=== PATIENT | female | born 1940 | race Caucasian/White ===

== ENCOUNTER 2023-09-02 09:06 | Outpatient (POV) | payer MEDICARE, SELFPAY ==
--- NOTE | 2023-09-02 10:01 | A.OFFVIS_ITS ---
HPI Data of Consult Patient: new to practice Consult date: 09/02/23 Requesting Physician: Saundra Aponte APRN Primary Care Provider: WM Charlie Shi MD Consult Narrative Reason for consult: Low back pain, mid back pain History of present illness: Ms. Covarrubias is a 83 year old female who presents today as a patient from the [facility] office. Today she rates her pain a 10 out of 10. Patient states her pain is all in her low back where it starts and does radiate up into her mid back and occasionally into upper around her shoulder blades. Patient does state this has been going on for years and progressively worsened over time. 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 Patient believes it was just all overall wear and tear through the years. Patient does describe her pain as a constant aching, sharp sensation that is worse with certain movements such as bending twisting lifting. She states that the pain does interfere with her ability to perform activities of daily living such as cooking and cleaning. Patient did previously have a thoracic epidural in [place] that did provide upwards of 90% relief back in April and lasted several months. Patient states that she is interested in repeating this injection. Patient has used [id number] Tylenol and ibuprofen along with heat and ice and topicals with minimal relief. Patient does state that she cannot do too much of the ibuprofen because it upsets her stomach. Patient was being prescribed tramadol 50 mg twice a day from the [place] office however when they lost the nurse practitioner she was unable to get this filled and is now currently out of this medication. She did state that this medicine did help. Her Zev has been reviewed and is appropriate. CC: Saundra Aponte APRN [facility] Disclaimer: The information contained in this section may have been updated after the patient was seen, as this information can be updated by other users. Social History Smoking Status: Unknown if ever smoked alcohol intake: never current occupational status: retired Travel in the last 8 weeks: None Review of Systems Review of Systems Review of systems:: pertinent systems reviewed and negative unless documented below Review of systems (narrative): Review of Systems: General: No recent weight changes, no fever, no sleep disturbances Respiratory: No cough, no shortness of air, no recurring pulmonary infections Cardiovascular/peripheral vascular: No chest pain, no palpitations, no edema, no shortness of breath Gastrointestinal: No new onset incontinence, normal bowel movements reported Genitourinary: No new onset incontinence Musculoskeletal: Low back pain, mid back pain Psychiatric: [Normal mood/affect] Neurological: [Denies weakness in extremities], [denies balance issues] Meds Home Medications and Allergies Home Medications Medication Instructions Recorded Confirmed Type tramadol 50 mg tablet 50 mg PO BID PRN pain #60 tabs 09/02/23 Rx New Prescriptions to Start Prescriptions: tramadol Saundra Aponte Objective Narrative: Physical Exam: General: Alert and oriented x3, no acute distress, pleasant and cooperative Lungs: Respirations even and unlabored, symmetrical chest expansion Eyes: PERRL Musculoskeletal: Flexion and extension of thoracic [spine] somewhat guarded secondary to pain, [antalgic gait noted] positive Kemps test Neurological: Speech clear, no gross sensory deficit Additional findings Additional findings: Lumbar spine x-ray AP and lateral 03/07/2023 Findings: There are 5 lumbar type vertebral bodies. Similar levocurvature of the lumbar spine. Vertebral body heights are maintained. Moderate disc space narrowing at L1-L2 which appears to have progressed since prior exam. Mild disc space narrowing at L5-S1. Facet arthrosis greatest in the lower lumbar spine, progressed and L4-L5 and L5-S1. No subluxation. Right upper quadrant surgical clips Thoracic AP and lateral 03/07/2023 Findings: Diffuse osteopenia. Mild serpiginous curvature of the thoracic spine, similar to prior exam. Exaggerated thoracic kyphosis again seen. Multilevel osteophytosis, greatest in the lower thoracic spine. No acute subluxation. Vertebral body heights are maintained. Thoracic MRI without contrast 08/07/2020 Findings: Moderate to large hiatal hernia. Benign cyst upper pole left kidney. Heart appears to be enlarged. Mild to moderate dorsal scoliosis with moderate to prominent kyphosis. Marrow signal is generally age-appropriate. Again noted and generalized prominence of the epidural adipose producing general narrowing of the thecal sac. The T1-2 through T6-7 disc are intact and the foramen. There is apparent partial vertebral body fusion at the level of T6-T9 with narr owing of the intervening disc. Appearance unchanged since prior study. Just above the inferior endplate of T7, in the midline there is extradural lesion projecting into the spinal canal abutting and contouring the spinal cord. Suspect this either represents an unusual scar or perhaps a chronic calcified extruded disc fragment. This lesion produces spinal stenosis with narrowing of the thecal sac about 7 mm. The T7-8 disc appears to be intact. No significant interval change. T8-T9: Small left paracentral disc protrusion produces mild spinal stenosis and contouring of the thoracic cord thecal sac measuring about 8 mm in midline T9-10: Degenerative narrowing of the disc with a mild hard disc bulge producing mild spinal stenosis, narrowing the canal to about 8 mm. T11- 12: Minimal disc bulge without significant spinal stenosis. Thecal sac measures 11 mm. Assessment and Plan *Assessment and plan (1) Low back pain: Status: Acute Qualifiers: Back pain laterality: bilateral Chronicity: chronic Sciatica presence: without sciatica Qualified Code(s): M54.50 - Low back pain, unspecified; G89.29 - Other chronic pain Category: Medical Code(s): M54.50 - Low back pain, unspecified (2) Mid back pain: Status: Acute Category: Medical Code(s): M54.9 - Dorsalgia, unspecified (3) Degenerative disc disease, lumbar: Status: Acute Category: Medical Code(s): M51.36 - Other intervertebral disc degeneration, lumbar region (4) Degenerative disc disease, thoracic: Status: Acute Category: Medical Code(s): M51.34 - Other intervertebral disc degeneration, thoracic region (5) Lumbar facet arthropathy: Status: Acute Category: Medical Code(s): M47.816 - Spondylosis without myelopathy or radiculopathy, lumbar region (6) Thoracic spondylosis: Status: Acute Category: Medical Code(s): M47.814 - Spondylosis without myelopathy or radiculopathy, thoracic region Plan Patient is experiencing worsening pain in her thoracic spine with limited range of motion. I have discussed with the patient that she may benefit from repeat thoracic epidural steroid injection. Risk and benefits were discussed with patient and she would like to proceed forward with this plan of care. Patient did also have a positive Kemps test during today's exam and I have discussed in future she may benefit from lumbar medial branch blocks. We will follow-up with this at future visits. I will send in a prescription of tramadol 50 mg twice daily and provide a 3-month supply of this medication. Patient will be scheduled for a thoracic epidural steroid injection T8-T9 under fluoroscopy. Patient has been instructed to contact the clinic with any concerns before the next appointment. Dr. Delcid has reviewed this note and agrees with this plan of care. This note was dictated using voice recognition software and make contain errors or omissions.
[2023-09-02 12:02] VITALS: BP 168/68; PULSE 66; RESP 18; O2SAT 98; BMI 22.4
== END 2023-09-02 23:59 | disposition home or self-care (01) ==
PROVIDERS: PCP Family Medicine; Visit Provider Nurse Practitioner Family
DX: M54.50 Low back pain, unspecified (principal); G89.29 Other chronic pain; M51.36 Other intervertebral disc degeneration, lumbar region; M51.34 Other intervertebral disc degeneration, thoracic region; M47.816 Spondylosis without myelopathy or radiculopathy, lumbar region; M47.814 Spondylosis without myelopathy or radiculopathy, thoracic region
CPT/HCPCS: 99202; G0463

== ENCOUNTER 2023-09-28 09:16 | Day surgery (SDC) | payer MEDICARE, SELFPAY ==
[2023-09-28 09:50] VITALS: BP 131/75; PULSE 51; RESP 16; TEMP 36.6; O2SAT 97; BMI 22.8
[2023-09-28] MEDS: methylPREDNISolone ACETATE 80MG/ML VIAL 80 MG (10:06)
[2023-09-28 10:15] VITALS: BP 157/66; PULSE 67; RESP 18; O2SAT 97
--- NOTE | 2023-09-28 10:27 | EXP.PAIN.PRO ---
Procedure Date: 09/28/23 Time: 10:00 Anesthesiologist:: Ashish Cardozo CRNA Complications:: None Pre-procedure Diagnosis:: Degenerative disc thoracic spine. Spondylosis thoracic spine multilevel. Thoracic radiculopathy. Thoracic facet arthropathy. Post-procedure Diagnosis:: Same. Indications for Procedure:: Patient is a very pleasant 83-year-old female comes our clinic today for repeat thoracic epidural steroid injection at T8-9 level. Patient had 4 to 6 months of and significant improvement terms of her overall thoracic back pain with previous injection same level. She rates her pain today /10. Procedure Details:: Procedure:Thoracic epidural steroid injection under fluoroscopy Informed consent was obtained and the risks and benefits of the procedure were explained to the patient. The patient was taken to the procedure room and noninvasive monitors placed, including noninvasive blood pressure cuff and pulse oximeter. The back was viewed using C-Arm fluoroscopy and prepped using Betadine as a cleansing solution and the T8-9 interspace was palpated. Skin and subcutaneous tissues were anesthetized using lidocaine 1.5% and a 25-gauge needle. After this, an 18-gauge Touhy epidural needle was placed into the T8-9 interspace and advanced using fluoroscopic guidance and loss of resistance to air until the epidural space was encountered. After confirmation of needle placement in the epidural space, with dye, a solution containing lidocaine 1.5%, 4 mL and Depo-Medrol 80 mg were incrementally injected into the thoracic epidural space. The patient tolerated the procedure well with no complications. The patient was observed in the Pain Clinic and then discharged home neurologically intact. Plan and Disposition:: Patient was discharged without incident.
== END 2023-09-28 10:15 | disposition home or self-care (01) ==
PROVIDERS: Visit Provider Nurse Anesthetist, Certified Registered
DX: M51.14 Intervertebral disc disorders with radiculopathy, thoracic region (principal); M47.24 Other spondylosis with radiculopathy, thoracic region
CPT/HCPCS: 62321; J1040

== ENCOUNTER 2023-10-20 10:58 | Outpatient (POV) | payer MEDICARE, SELFPAY ==
[2023-10-20 11:00] VITALS: BP 154/79; PULSE 81; RESP 18; TEMP 36.4; O2SAT 98; BMI 22.6
--- NOTE | 2023-10-20 11:50 | EXP.PAIN.SOA ---
[facility] Pain Management SOAP Note Subjective:: Patient is a pleasant 83-year-old female who presents today for follow-up of thoracic epidural at T8-T9 on 09/28/2023. Today she rates her pain a 6 out of 10. She denies any new trauma or injury. She states that she has had at least 75% improvement following this injection. She states that it did not work as well as her first injection but is still helping make the pain more manageable. Patient states that she has been able to increase her activity with overall decreased pain. Patient is very active and still mows the yard and other household activities. She does state that her pain does sometimes seem worse depending on what she has done during the day. Patient was prescribed tramadol 50 mg twice a day at our last office visit and was given a 3-month supply of this medication. She does not need refills until November. Her Zev has been reviewed. Review of Systems: General: No recent weight changes, no fever, no sleep disturbances Respiratory: No cough, no shortness of air, no recurring pulmonary infections Cardiovascular/peripheral vascular: No chest pain, no palpitations, no edema, no shortness of breath Gastrointestinal: No new onset incontinence, normal bowel movements reported Genitourinary: No new onset incontinence Musculoskeletal: Low back pain, mid back pain Psychiatric: [Normal mood/affect] Neurological: [Denies weakness in extremities], [denies balance issues] Objective:: Physical Exam: General: Alert and oriented x3, no acute distress, pleasant and cooperative Lungs: Respirations even and unlabored, symmetrical chest expansion Eyes: PERRL Musculoskeletal: Flexion and extension of lumbar [spine] somewhat guarded secondary to pain, [antalgic gait noted] Neurological: Speech clear, no gross sensory deficit Assessment:: Degenerative disc disease of thoracic and lumbar spine with thoracic and lumbar radiculopathy symptoms Plan:: Patient has had significant improvement following her injection and does not require any additional injection therapy at this time. Patient will return to clinic in 2 months for reevaluation of symptoms, plan of care and medication refill. Patient has been instructed to contact the clinic with any concerns before the next appointment. Dr. Delcid has reviewed this note and agrees with this plan of care. This note was dictated using voice recognition software and make contain errors or omissions. [facility] Disclaimer: The information contained in this section may have been updated after the patient was seen, as this information can be updated by other users. Medical History TMJ dysfunction Surgical History Hx of cholecystectomy Family History Other Unknown family medical history Social History Smoking Status: Unknown if ever smoked alcohol intake: never current occupational status: retired Travel in the last 8 weeks: None
== END 2023-10-20 23:59 ==
LOC: SC.PAIN 10:59
PROVIDERS: Visit Provider Nurse Practitioner Family
DX: M51.14 Intervertebral disc disorders with radiculopathy, thoracic region (principal); M51.16 Intervertebral disc disorders with radiculopathy, lumbar region
CPT/HCPCS: 99212; G0463

== ENCOUNTER 2023-12-20 08:57 | Outpatient (POV) | payer MEDICARE, SELFPAY ==
[2023-12-20 08:59] VITALS: BP 168/64; PULSE 68; RESP 18; TEMP 36.7; O2SAT 98; BMI 23.4
--- NOTE | 2023-12-20 09:50 | EXP.PAIN.SOA ---
[facility] Pain Management SOAP Note Subjective:: Patient is a pleasant 83-year-old female who presents today for follow-up of worsening pain. Patient rates her pain right now a 0 out of 10 however states it will go to 11 out of 10 with increased activity. Patient denies any new injury or trauma. She does state that the pain is all along the left side of her low back and denies any radiating symptoms into her legs. Patient states this pain is very bad with certain movements such as bending, twisting or lifting. Patient states that she would like to be very active and do things outside and she cannot due to the worsening pain. Patient does state the pain interferes with her ability perform activities of daily living such as cooking and cleaning. She does describe it as an aching, throbbing sensation. Patient states she is interested in getting an injection for this. Patient is prescribed tramadol 50 mg twice a day from our office and states that this is still helping and she does need refills. Her Zev has been reviewed and is appropriate. Review of Systems: General: No recent weight changes, no fever, no sleep disturbances Respiratory: No cough, no shortness of air, no recurring pulmonary infections Cardiovascular/peripheral vascular: No chest pain, no palpitations, no edema, no shortness of breath Gastrointestinal: No new onset incontinence, normal bowel movements reported Genitourinary: No new onset incontinence Musculoskeletal: Low back pain Psychiatric: [Normal mood/affect] Neurological: [Denies weakness in extremities], [denies balance issues] Objective:: Physical Exam: General: Alert and oriented x3, no acute distress, pleasant and cooperative Lungs: Respirations even and unlabored, symmetrical chest expansion Eyes: PERRL Musculoskeletal: Flexion and extension of lumbar [spine] somewhat guarded secondary to pain, [antalgic gait noted] positive Kemps test Neurological: Speech clear, no gross sensory deficit Assessment:: Degenerative disc disease of thoracic and lumbar spine with thoracic and lumbar radiculopathy symptoms, lumbar facet arthropathy Plan:: Patient is experiencing worsening pain in her low back along the left side with limited range of motion of her lumbar spine and a positive Kemps test. I discussed with the patient that she may benefit from a lumbar medial branch block. Risk and benefits were discussed with patient and she would like to proceed forward with this plan of care. I have counseled the patient if she does get significant relief we will plan on repeating the injection with possibility of RFA at a later date. Patient is agreeable to this. Patient has tried and failed conservative therapy including continued at home stretching and exercise between injections. We will schedule the patient for a lumbar medial branch block L2-L3 and L3-L4 left-sided under fluoroscopy. I will also send in a 3-month supply for tramadol. Patient has been instructed to contact the clinic with any concerns before the next appointment. Dr. Delcid has reviewed this note and agrees with this plan of care. This note was dictated using voice recognition software and make contain errors or omissions. [facility] Disclaimer: The information contained in this section may have been updated after the patient was seen, as this information can be updated by other users. Medical History TMJ dysfunction Surgical History Hx of cholecystectomy Family History Other Unknown family medical history Social History Smoking Status: Unknown if ever smoked alcohol intake: never current occupational status: retired Travel in the last 8 weeks: None
== END 2023-12-20 23:59 | disposition home or self-care (01) ==
PROVIDERS: Visit Provider Nurse Practitioner Family
DX: M51.14 Intervertebral disc disorders with radiculopathy, thoracic region (principal); M51.16 Intervertebral disc disorders with radiculopathy, lumbar region; M47.896 Other spondylosis, lumbar region
CPT/HCPCS: 99212; G0463

== ENCOUNTER 2024-01-04 12:34 | Day surgery (SDC) | payer MEDICARE, SELFPAY ==
[2024-01-04 13:15] VITALS: BP 140/67; BP 165/77; PULSE 62; PULSE 80; RESP 18; O2SAT 100; O2SAT 99; BMI 23.4
[2024-01-04] MEDS: BUPIVACAINE 0.25% 10ML INJ 25 MG IJ (13:28)
[2024-01-04] MEDS: methylPREDNISolone ACETATE 80MG/ML VIAL 80 MG (13:29)
[2024-01-04] MEDS: LIDOCAINE 1% 5ML PF VIAL 5 ML (13:29)
--- NOTE | 2024-01-04 13:31 | P.PCN_ITS ---
Procedure Date: 01/04/24 Time: 13:15 Anesthesiologist:: Ashish Cardozo CRNA Complications:: None Pre-procedure Diagnosis:: Degenerative disc lumbar spine. Degenerative spondylosis lumbar spine. Multi lumbar facet arthropathy. Lumbar radiculopathy. Post-procedure Diagnosis:: Same. Indications for Procedure:: Patient is a very pleasant 83-year-old female comes our clinic today for left L2-3, L3-4 facet blocks/medial branch block. Patient describes lumbar back pain as left side and constant, dull, aching. She reports difficulty with flexion and extension of the lumbar spine. Left rotation increases pain significantly. Procedure Details:: Details of the procedure explained to the patient. The patient taken procedure and placed in the prone position. The area of the lumbar spine was cleansed using chlorhexidine's cleansing solution. Using fluoroscopy guidance and a 22- gauge 3 and half inch spinal needle the left L2-3 and L3-4 facet joint was accessed with ease. After negative aspiration 1 cc of 1% lidocaine and 10 mg of Depo-Medrol was injected. Patient tolerated procedure without difficulty. There are no complications. Plan and Disposition:: Patient was discharged without incident.
[2024-01-04 13:32] VITALS: BP 165/77; PULSE 87; RESP 18; O2SAT 99
[2024-01-04 13:35] VITALS: BP 138/66; PULSE 66; RESP 18; O2SAT 98
== END 2024-01-04 13:36 | disposition home or self-care (01) ==
PROVIDERS: PCP Family Medicine; Visit Provider Nurse Anesthetist, Certified Registered
DX: M47.816 Spondylosis without myelopathy or radiculopathy, lumbar region (principal)
CPT/HCPCS: 64493; 64494; J1010

== ENCOUNTER 2024-01-24 10:40 | Outpatient (POV) | payer MEDICARE, SELFPAY ==
--- NOTE | 2024-01-24 10:56 | A.OFFVIS_ITS ---
[facility] Disclaimer: The information contained in this section may have been updated after the patient was seen, as this information can be updated by other users. Medical History TMJ dysfunction Surgical History Hx of cholecystectomy Family History Other Unknown family medical history Social History Smoking Status: Unknown if ever smoked alcohol intake: never current occupational status: retired Travel in the last 8 weeks: None PM Subjective & Objective Subjective Subjective:: Patient is a pleasant 83-year-old female who presents today for follow-up of her first lumbar medial branch blocks left-sided L2-L3 and L3-L4 on 01/04/2024. Today she rates her pain a 0 out of 10. She denies any new trauma or injury. She does state that she has had 100% relief for nearly. She states she has been able to increase her activity with overall decreased pain and feels more functional. She states she has been able to work more in her garden and that they have been doing a lot more candy since having this procedure. Patient states she is very pleased with her improvements. Patient is prescribed tramadol 50 mg twice a day from our office and was just given a 3-month supply of this medication. Her Zev has been reviewed and is appropriate. Review of Systems: General: No recent weight changes, no fever, no sleep disturbances Respiratory: No cough, no shortness of air, no recurring pulmonary infections Cardiovascular/peripheral vascular: No chest pain, no palpitations, no edema, no shortness of breath Gastrointestinal: No new onset incontinence, normal bowel movements reported Genitourinary: No new onset incontinence Musculoskeletal: Low back pain Psychiatric: [Normal mood/affect] Neurological: [Denies weakness in extremities], [denies balance issues] Pain at rest (0-10 scale): 0 Objective Objective:: Physical Exam: General: Alert and oriented x3, no acute distress, pleasant and cooperative Lungs: Respirations even and unlabored, symmetrical chest expansion Eyes: PERRL Musculoskeletal: Flexion and extension of lumbar[spine] somewhat guarded secondary to pain, [antalgic gait noted] Neurological: Speech clear, no gross sensory deficit Has patient had previous pain injection?: Yes Percent improvement in pain since last injection: 100% Conservative treatment options previously tried: Home exercise plan Length of treatment: Longer than 6 weeks Meds Home Medications and Allergies Home Medications Medication Instructions Recorded Confirmed Type ergocalciferol (vitamin D2) 1,250 1,250 mcg PO WEEKLY SUPPLIMENT 09/02/23 01/04/24 History mcg (50,000 unit) capsule (Drisdol) tramadol 50 mg tablet 50 mg PO BID PRN pain #60 tabs 12/20/23 01/04/24 Rx New Prescriptions to Start Prescriptions: Allergies Allergy/AdvReac Type Severity Reaction Status Date / Time No Known Allergies Allergy Verified 09/28/23 09:50 Assessment and Plan *Assessment and plan (1) Lumbar facet arthropathy: Status: Acute Category: Medical Code(s): M47.816 - Spondylosis without myelopathy or radiculopathy, lumbar region Plan Patient has had significant improvement following her first lumbar medial branch block. Patient had 100% relief and does not require any additional injection therapy at this time. Patient will return to clinic in 2 months for reevaluation of symptoms and plan of care. Patient has been instructed to contact the clinic with any concerns before the next appointment. Dr. Delcid has reviewed this note and agrees with this plan of care. This note was dictated using voice recognition software and make contain errors or omissions.
[2024-01-24 11:38] VITALS: BP 130/68; PULSE 69; RESP 18; O2SAT 98; BMI 22.6
== END 2024-01-24 23:59 | disposition home or self-care (01) ==
LOC: SC.PAIN 10:41
PROVIDERS: Visit Provider Nurse Practitioner Family
DX: M47.816 Spondylosis without myelopathy or radiculopathy, lumbar region (principal)
CPT/HCPCS: 99212; G0463

== ENCOUNTER 2024-03-27 07:48 | Outpatient (POV) | payer MEDICARE, SELFPAY ==
[2024-03-27 08:52] VITALS: BP 145/71; PULSE 77; RESP 16; O2SAT 100; BMI 22.6
--- NOTE | 2024-03-27 09:37 | EXP.PAIN.SOA ---
[facility] Disclaimer: The information contained in this section may have been updated after the patient was seen, as this information can be updated by other users. Medical History (Updated 03/27/24 @ 09:42 by Saundra Aponte APRN) TMJ dysfunction Surgical History Hx of cholecystectomy Family History Other Unknown family medical history Social History Smoking Status: Unknown if ever smoked alcohol intake: never current occupational status: other Travel in the last 8 weeks: None PM Subjective & Objective Subjective Subjective:: Patient is a pleasant 84-year-old female who presents today for worsening pain and medication refill. Today she rates her pain a 9 out of 10. Patient states her pain is all while she is moving her neck and head and does radiate into her bilateral shoulders. Patient states it is a constant aching, throbbing sensation with some pains going into her shoulders. Patient states that she did have occasional symptoms going down into her left extremity however that has gone away. Patient does state however due to the worsening pain she is very limited on her activity. She states that her range of motion is affected and she has trouble with the simplest activities like even driving in the car. She states she has trouble bending her head down or back or looking [id number]. Patient states she has not been driving due to the worsening symptoms and having concern for her own safety. Patient states she cannot do activities of daily living such as cooking and cleaning due to the pain. Patient is interested in any help we may be able to provide. Patient is prescribed tramadol 50 mg twice a day from our office. She denies any side effects from this medication. Her Zev has been reviewed and is appropriate. Review of Systems: General: No recent weight changes, no fever, no sleep disturbances Respiratory: No cough, no shortness of air, no recurring pulmonary infections Cardiovascular/peripheral vascular: No chest pain, no palpitations, no edema, no shortness of breath Gastrointestinal: No new onset incontinence, normal bowel movements reported Genitourinary: No new onset incontinence Musculoskeletal: Neck pain Psychiatric: [Normal mood/affect] Neurological: [Denies weakness in extremities], [denies balance issues] Pain at rest (0-10 scale): 9 Objective Objective:: Physical Exam: General: Alert and oriented x3, no acute distress, pleasant and cooperative Lungs: Respirations even and unlabored, symmetrical chest expansion Eyes: PERRL Musculoskeletal: Flexion and extension of cervical [spine] somewhat guarded secondary to pain, [antalgic gait noted] positive Kemps test Neurological: Speech clear, no gross sensory deficit Has patient had previous pain injection?: No Conservative treatment options previously tried: Home exercise plan Length of treatment: Longer than 12 weeks Meds Home Medications and Allergies Home Medications ?Medication ?Instructions ?Recorded ?Confirmed ?Type ergocalciferol (vitamin D2) 1,250 1,250 mcg PO WEEKLY SUPPLIMENT 09/02/23 03/27/24 History mcg (50,000 unit) capsule (Drisdol) tramadol 50 mg tablet 50 mg PO BID PRN pain #60 tabs 12/20/23 03/27/24 Rx New Prescriptions to Start Prescriptions: Allergies Allergy/AdvReac Type Severity Reaction Status Date / Time No Known Allergies Allergy Verified 09/28/23 09:50 Assessment and Plan *Assessment and plan (1) Degenerative disc disease, cervical: Status: Acute Category: Medical Code(s): M50.30 - Other cervical disc degeneration, unspecified cervical region (2) Facet arthropathy, cervical: Status: Acute Category: Medical Code(s): M47.812 - Spondylosis without myelopathy or radiculopathy, cervical region Plan I did also review over the patient's left shoulder and cervical x-ray imaging findings. Patient did have diffuse degenerative disc disease of her cervical spine with facet joint narrowing and sclerosis most prominent at C5-C6 C6-C7. I did discuss with the patient due to her limited range of motion and a positive Kemps test that she may benefit from a cervical medial branch block bilaterally. Risk and benefits were discussed with the patient and she would like to proceed forward with this plan of care. Patient is not on any blood thinners. I will also refill the patient's tramadol and provide a 90-day supply of this medication. Patient will return to clinic for a cervical medial branch block bilaterally C5-C6 and C6-C7 under fluoroscopy. Patient has tried and failed conservative therapy including continued at home stretching exercise for longer than 12 weeks. Patient has been instructed to contact the clinic with any concerns before the next appointment. Dr. Delcid has reviewed this note and agrees with this plan of care. This note was dictated using voice recognition software and make contain errors or omissions. All injections are used with Lidocaine or Bupivacaine and Depo Medrol.
== END 2024-03-27 23:59 | disposition home or self-care (01) ==
PROVIDERS: PCP Family Medicine; Visit Provider Nurse Practitioner Family
DX: M50.30 Other cervical disc degeneration, unspecified cervical region (principal); M47.812 Spondylosis without myelopathy or radiculopathy, cervical region; Z73.89 Other problems related to life management difficulty
CPT/HCPCS: 99212; G0463

== ENCOUNTER 2024-04-11 12:28 | Day surgery (SDC) | payer MEDICARE, SELFPAY ==
[2024-04-11 13:24] VITALS: BP 132/60; PULSE 62; RESP 16; TEMP 36.6; O2SAT 98; BMI 22.6
[2024-04-11 13:40] VITALS: BP 127/67; PULSE 56; RESP 18; O2SAT 98
--- NOTE | 2024-04-11 13:42 | P.PCN_ITS ---
Procedure Date: 04/11/24 Time: 13:30 Anesthesiologist:: Ashish Cardozo CRNA Complications:: None Pre-procedure Diagnosis:: Degenerative disc cervical spine multilevels. Cervical facet arthropathy. Cervical spondylosis. Cervical radiculopathy. Post-procedure Diagnosis:: Same. Indications for Procedure:: Patient is a very pleasant 84-year-old female who comes our clinic today for bilateral cervical facet/medial branch block injections C5-6, C6-7. Patient describes cervical neck pain as constant, dull, aching. Patient reports radicular symptoms into the bilateral shoulders. Also, bilateral trapezius muscles. Patient has extreme difficulty with cervical flexion, extension, left and right rotation. She rates her pain 9/10. Procedure Details:: Procedure Details:: Informed consent was obtained and the risk and benefits of the procedure was explained to the patient. Patient was taken to the procedure room where noninvasive monitors were placed, including noninvasive blood pressure cuff as well as pulse oximeter. The area over the posterior cervical spine was cleansed using chlorhexidine as a cleansing solution. I anesthetized the skin and subcutaneous tissues with 1% Lidocaine. I placed 25 -gauge spinal needles into the facet joint/ medial branches of C5-6, C6-7 bilaterally. Needle placement was confirmed with fluoroscopy. After confirmation of needle placement, each site was injected with 1 mL of 1% lidocaine and 0.25 % Marcaine and 10 mg of Depo- Medrol. A total of 20 mg of depo medrol was used for bilateral medial branch blocks of C5-6, C6-7 bilaterally. Patient tolerated the procedure without difficulty. There were no complications. Plan and Disposition:: Patient was discharged without incident.
[2024-04-11] MEDS: methylPREDNISolone ACETATE 80MG/ML VIAL 80 MG (13:45)
[2024-04-11 13:46] VITALS: BP 166/75; PULSE 84; RESP 18; O2SAT 97
[2024-04-11] MEDS: BUPIVACAINE 0.25% 10ML INJ 25 MG IJ (13:46)
[2024-04-11] MEDS: LIDOCAINE 1% 5ML PF VIAL 5 ML (13:46)
[2024-04-11 13:47] VITALS: BP 166/75; PULSE 84; RESP 18; O2SAT 97
== END 2024-04-11 13:40 | disposition home or self-care (01) ==
PROVIDERS: PCP Family Medicine; Visit Provider Nurse Anesthetist, Certified Registered
DX: M47.812 Spondylosis without myelopathy or radiculopathy, cervical region (principal); M50.30 Other cervical disc degeneration, unspecified cervical region
CPT/HCPCS: 64490; 64491; J1010

== ENCOUNTER 2024-05-08 11:01 | Outpatient (POV) | payer MEDICARE, SELFPAY ==
[2024-05-08 11:49] VITALS: BP 147/81; PULSE 87; RESP 16; O2SAT 99; BMI 21.7
--- NOTE | 2024-05-08 12:03 | A.OFFVIS_ITS ---
[facility] Disclaimer: The information contained in this section may have been updated after the patient was seen, as this information can be updated by other users. Medical History TMJ dysfunction Surgical History Hx of cholecystectomy Family History Other Unknown family medical history Social History Smoking Status: Unknown if ever smoked alcohol intake: never current occupational status: other Travel in the last 8 weeks: None PM Subjective & Objective Subjective Subjective:: Patient is a pleasant 84-year-old female who presents today for follow-up of cervical facet injections on 04/11/2024, bilaterally C5-C6 and C6-C7. Today she rates her pain a 5 out of 10. Patient states that she has had at least 80% improvement and that she does feel like turning her head [id number] is much easier with decreased pain. She does state that she still has some difficulty looking up and down. She also states that she is experiencing some pain still around her low back. Patient did previously have her first lumbar medial branch block that did provide significant improvement. She states that it is starting to wear off more however right now it is still manageable and general. The patient is prescribed tramadol 50 mg twice a day from our office. She denies any side effects from this medication. She was just given a 90-day supply of this medication. Her Zev has been reviewed and is appropriate. Review of Systems: General: No recent weight changes, no fever, no sleep disturbances Respiratory: No cough, no shortness of air, no recurring pulmonary infections Cardiovascular/peripheral vascular: No chest pain, no palpitations, no edema, no shortness of breath Gastrointestinal: No new onset incontinence, normal bowel movements reported Genitourinary: No new onset incontinence Musculoskeletal: Neck pain, low back pain Psychiatric: [Normal mood/affect] Neurological: [Denies weakness in extremities], [denies balance issues] Pain at rest (0-10 scale): 5 Objective Objective:: Physical Exam: General: Alert and oriented x3, no acute distress, pleasant and cooperative Lungs: Respirations even and unlabored, symmetrical chest expansion Eyes: PERRL Musculoskeletal: Flexion and extension of lumbar [spine] somewhat guarded secondary to pain, [antalgic gait noted] Neurological: Speech clear, no gross sensory deficit Has patient had previous pain injection?: Yes Percent improvement in pain since last injection: 80% Conservative treatment options previously tried: Home exercise plan Length of treatment: Longer than 12 weeks Meds Home Medications and Allergies Home Medications ?Medication ?Instructions ?Recorded ?Confirmed ?Type ergocalciferol (vitamin D2) 1,250 1,250 mcg PO WEEKLY SUPPLIMENT 09/02/23 05/08/24 History mcg (50,000 unit) capsule (Drisdol) tramadol 50 mg tablet 50 mg PO BID PRN pain #180 tabs 03/27/24 05/08/24 Rx New Prescriptions to Start Prescriptions: Allergies Allergy/AdvReac Type Severity Reaction Status Date / Time No Known Allergies Allergy Verified 09/28/23 09:50 Assessment and Plan *Assessment and plan (1) Facet arthropathy, cervical: Status: Acute Category: Medical Code(s): M47.812 - Spondylosis without myelopathy or radiculopathy, cervical region (2) Degenerative disc disease, cervical: Status: Acute Category: Medical Code(s): M50.30 - Other cervical disc degeneration, unspecified cervical region (3) Thoracic spondylosis: Status: Acute Category: Medical Code(s): M47.814 - Spondylosis without myelopathy or radiculopathy, thoracic region (4) Lumbar facet arthropathy: Status: Acute Category: Medical Code(s): M47.816 - Spondylosis without myelopathy or radiculopathy, lumbar region (5) Degenerative disc disease, lumbar: Status: Acute Category: Medical Code(s): M51.36 - Other intervertebral disc degeneration, lumbar region Plan Patient has had significant improvement from both her cervical and lumbar medial branch block and does not require any additional injection therapy at this time. Patient will return to clinic in 1 month for reevaluation of symptoms and plan of care. Patient has been instructed to contact the clinic with any concerns before the next appointment. Dr. Delcid has reviewed this note and agrees with this plan of care. This note was dictated using voice recognition software and make contain errors or omissions. All injections are used with Lidocaine or Bupivacaine and Depo Medrol.
== END 2024-05-08 23:59 | disposition home or self-care (01) ==
LOC: SC.PAIN 11:03
PROVIDERS: PCP Family Medicine; Visit Provider Nurse Practitioner Family
DX: M47.812 Spondylosis without myelopathy or radiculopathy, cervical region (principal); M50.30 Other cervical disc degeneration, unspecified cervical region; M47.814 Spondylosis without myelopathy or radiculopathy, thoracic region; M47.816 Spondylosis without myelopathy or radiculopathy, lumbar region; M51.369 Other intervertebral disc degeneration, lumbar region without mention of lumbar back pain or lower extremity pain
CPT/HCPCS: 99212; G0463